=== PATIENT | male | born 1990 | race Two or more races ===

== ENCOUNTER 2021-05-31 22:01 | Emergency (ER) | payer OTHER, SELFPAY ==
[2021-05-31 22:24] VITALS: BP 127/79; PULSE 61; RESP 18; TEMP 36.4; O2SAT 98; BMI 29.5
--- NOTE | 2021-06-01 00:35 | PC.NURSE ---
at bedside for primary eval.
--- NOTE | 2021-06-01 00:39 | ED.BACK ---
HPI - Back Pain/Injury General Chief Complaint: Back Pain/Injury Stated Complaint: back pain Time Seen by Provider: 06/01/21 00:34 Source: patient Mode of arrival: ambulatory Limitations: no limitations History of Present Illness HPI Narrative: Patient comes to the emergency room complaining of upper middle and lower back pain that started yesterday. Patient states he went to the gym, was lifting weights, he did not feel the discomfort immediately but shortly after she was driving home, stopped for gas, and he noted that all his back was hurting. Patient reports that there is some radiation towards his lower extremities. Patient denies numbness tingling, no urinary/fecal incontinence/retention. Related Data Previous Rx's Medication Instructions Recorded baclofen 10 mg tablet 10 mg PO TID PRN #10 tab 06/01/21 ketorolac 10 mg tablet 10 mg PO TID PRN 5 Days #7 tab 06/01/21 Allergies Allergy/AdvReac Type Severity Reaction Status Date / Time No Known Allergies Allergy Verified 05/31/21 22:24 Review of Systems Review of Systems: Constitutional : No Weight loss, No Fever, No Chills, No Night Sweats, No Fatigue, No Malaise ENT/Mouth : No Hearing loss, No Ear Pain, No Nasal Congestion, No Sinus Pain, No Hoarseness, No sore throat, No Rhinorrhea, No Swallowing Difficulty Eyes: No Eye Pain, No Swelling, No Redness, No Foreign Body, No Discharge, No Vision Changes Cardiovascular : No Chest Pain, No SOB, No Dyspnea on Exertion, No Orthopnea, No Edema, No Palpitations Respiratory : No Cough, No Sputum, No Wheezing, No Smoke Exposure, No Dyspnea Gastrointestinal : No Nausea, No Vomiting, No Diarrhea, No Constipation, No abdominal Pain, No Hematochezia, No Melena Genitourinary : no irregular bleeding, No Dysuria, No Urinary Frequency, No Hematuria, No Urinary Incontinence, No Urgency, No Flank Pain, No Urinary Flow Changes, No Hesitancy Musculoskeletal : No joint pain, complaining of upper middle and lower back pain bilaterally Skin : No Skin Lesions, No rash Neuro : No Weakness, No Numbness, No Paresthesias, No Loss of Consciousness, No Dizziness, No Headache Psych : No Anxiety/Panic, No Depression, No SI/HI/AH/VH, No Social Issues, Heme/Lymph: No Bruising, No Bleeding,No Lymphadenopathy Endocrine : No Polyuria, No Polydipsia, No Temperature Intolerance PMFSH Social History Social History Advance Directives: No Advance Directives Information Provided: No Physical Exam Vital Signs: Vital Signs: Last Vital Signs Temp 97.6 F 05/31/21 22:24 Pulse 61 05/31/21 22:24 Resp 18 05/31/21 22:24 BP 127/79 05/31/21 22:24 Pulse Ox 98 05/31/21 22:24 Body Mass Index 29.5 Const: Other: Appearance: Alert. Oriented X3. No acute distress. Eyes: Pupils equal, round and reactive to light. ENT: Pharynx normal. Neck: Normal inspection. Neck supple. No lymph nodes noted. No crepitus CVS: Normal heart rate and rhythm. Pulses normal. Normal S1 and S2 Respiratory: No respiratory distress. Breath sounds normal. No Wheezing. No rales Abdomen: Soft and nontender. No rigidity. No distention. Back: Pain to palpation over bilateral upper middle and lower back, palpable muscle spasms over the paraspinal muscles bilaterally Skin: Skin warm and dry. Normal skin color. Normal skin turgor. Extremities: No lower extremity edema. No lower extremity edema. No Lacerations. No Rash Neuro: Oriented X 3. No motor deficit. No sensory deficit. Moving all extermities. No slurred speech. Course Course Course Narrative: I discussed the physical exam with the patient, at this time imaging is not necessary. However, I discussed with the patient that if he continues having occasional radiating pain towards his lower extremities, he may need an MRI which can be done through a referral by his primary care physician to rule out sciatica versus bulged discs Patient received 1 dose of IM Toradol and p.o. Valium for the muscle spasms Discharge Plan Discharge Clinical Impression: Back strain Patient Disposition: Home, Self-Care Instructions: Back Pain (ED) Additional Instructions: Please follow-up with your primary care physician tomorrow. If you have any worsening or new symptoms, please return to the emergency room or call 911 Prescriptions: New ketorolac 10 mg tablet 10 mg PO TID PRN (Reason: pain) 5 Days Qty: 7 RF: 0 baclofen 10 mg tablet 10 mg PO TID PRN (Reason: Muscle spasms) Qty: 10 RF: 0 Stand Alone Forms: Work/School Release
[2021-06-01] MEDS: Ketorolac Tromethamine 15 MG/ML VIAL IM (00:59)
[2021-06-01] MEDS: diazePAM 5 MG TABLET PO (01:00)
== END 2021-06-01 01:04 | disposition home or self-care (01) ==
PROVIDERS: Emergency Provider Emergency Medicine; PCP Emergency Medicine
DX: S39.012A Strain of muscle, fascia and tendon of lower back, initial encounter (principal); X50.0XXA Overexertion from strenuous movement or load, initial encounter; Y93.B3 Activity, free weights; Y92.59 Other trade areas as the place of occurrence of the external cause; Y99.9 Unspecified external cause status
CPT/HCPCS: 96372; 99283; 99284; J1885

== ENCOUNTER 2023-12-29 08:59 | Outpatient (REF) | payer OTHER, SELFPAY ==
--- NOTE | ~2023-12-29 | US_ITS ---
EXAMINATION: US EXTREMITY, NONVASCULAR CLINICAL INFORMATION: Left and right arm palpable masses, question lipomas versus lymph nodes. Lateral right mid ulnar lump. Left distal humerus medial lump. COMPARISON: None available. TECHNIQUE: Targeted ultrasound images were obtained by the liner replacer of the area of concern as indicated by the patient in the right forearm and left upper arm. Radiologist was not in attendance. Images were later provided for interpretation. FINDINGS: Images of the area indicated by the patient in the right mid forearm superficial soft tissues overlying the ulna demonstrate a 1.1 x 0.5 x 1.2 cm solid, heterogeneous, hypoechoic mass with well-defined margins and internal vascularity as well as a similar-appearing adjacent 0.5 x 0.4 x 0.5 cm mass. Images of the area indicated by the patient along the medial aspect of the distal left humerus demonstrate a 2.1 x 0.8 x 1.1 cm heterogeneous, hypoechoic, solid mass with well-defined margins and internal vascularity. A similar adjacent mass measures 2.0 x 0.9 x 1.5 cm. US/US extremity nonvascular IMPRESSION: Solid masses in the areas of concern indicated by the patient in the right forearm and left upper extremity. Benign and malignant etiologies should be considered. Correlation with clinical exam recommended to determine further management including possible surgical consultation, additional imaging and/or biopsy.
== END 2023-12-29 09:00 | disposition home or self-care (01) ==
LOC: HO.UMASIMG 08:59
PROVIDERS: Visit Provider Emergency Medicine
DX: D17.79 Benign lipomatous neoplasm of other sites (principal)
CPT/HCPCS: 76882